=== PATIENT | female | born 1945 | race African-American/Black ===

== ENCOUNTER → 2016-08-05 | Outpatient (CLI) | payer OTHER ==
[~2016-08-05] MED LIST: ASPIRIN81 M1 PO; CLONIDINE; LEVOXY; NORVASC PO; THYROID MEDICINE
--- NOTE | ~2016-08-05 | MY7 ---
[facility] A Service of [facility] RADIOLOGY TEXT RESULTS PATIENT: COLLEEN FOSTER LOCATION: [facility] : 47 UNIT #: [id number] AGE: [address]: Ze Rhoades MD SEX: F ORDER DR: [id number] [facility]. [place], [place] [address] [id number] O MR#: [id number] Acc #: [id number] NAME: COLLEEN FOSTER. : 1945 SEX: F STUDY DATE/TIME: 08/05/2016 11:14 UNIT: [facility] ROOM: STUDY DESCRIPTION: MY Mammogram Dx Dig Lt Attending Physician: Ze Rhoades M.D. Referring Physician: Ze Rhoades M.D. Ordering Physician: Ze Rhoades M.D. Primary Care Physician: Milagros Ibarra M.D. MEDICAL IMAGING REPORT This report is preliminary unless electronic signature is present EXAM Left breast digital diagnostic mammogram with CAD DATE 08/05/2016 HISTORY 71-year-old female with history of left breast cancer and lumpectomy in 2014. No current complaints. COMPARISON Bilateral screening mammogram 12/08/2015. FINDINGS CC, MLO and true ML views were obtained of the left breast utilizing digital technique and reviewed with an FDA-approved CAD device. Scattered fibroglandular densities are present. Architectural distortion within the upper outer quadrant of the left breast central third is unchanged, in keeping with history of lumpectomy. No new or suspicious nodule is identified. Skin thickening in the left breast is consistent with previous stated history of radiation therapy, as well. There are no suspicious clustered microcalcifications. IMPRESSION 1. Left breast BIRADS category 2. Post lumpectomy and radiation therapy changes. There are no new features to suggest malignancy. Patient is advised to return for routine screening mammograms cycle, due in November of 2016. Findings and recommendations were discussed with the patient today in the radiology department. Patients over the age of 40 are entered into a reminder system with target due date for the next mammogram. A result letter will also be sent to the [facility] A Service of [facility] RADIOLOGY TEXT RESULTS PATIENT: COLLEEN FOSTER LOCATION: [facility] : 47 UNIT #: [id number] AGE: [address]: Ze Rhoades MD SEX: F ORDER DR: patient. BIRADS: 2, benign findings Dictated by... Samia Escalera M.D. THIS IS AN ELECTRONICALLY VERIFIED REPORT Samia Escalera M.D. at 08/06/2016 6:13 AM ALANNA/desire TD: 08/05/2016 13:44 JOB #: [id number] MEDICAL IMAGING REPORT Page 1 of 1 COPY
== END | disposition home or self-care (01) ==
LOC: CMAM 10:30
DX: C50.912 Malignant neoplasm of unspecified site of left female breast (principal); Z98.890 Other specified postprocedural states
CPT/HCPCS: G0206

== ENCOUNTER → 2016-09-17 | Outpatient (CLI) | payer OTHER ==
--- NOTE | ~2016-09-17 | CR59 ---
[facility] A Service of [facility] RADIOLOGY TEXT RESULTS PATIENT: COLLEEN FOSTER LOCATION: [facility] : 47 UNIT #: [id number] AGE: [address]: Milagros Ibarra MD SEX: F ORDER DR: [id number] [facility] [address] [place], [place] [address] [id number] O MR#: [id number] Acc #: [id number] NAME: COLLEEN FOSTER. : 1945 SEX: F STUDY DATE/TIME: 09/17/2016 15:44 UNIT: [facility] ROOM: STUDY DESCRIPTION: CR Cervical Spine 5 View W Fle Attending Physician: Milagros Ibarra M.D. Referring Physician: Milagros Ibarra M.D. Ordering Physician: Milagros Ibarra M.D. Primary Care Physician: Milagros Ibarra M.D. MEDICAL IMAGING REPORT This report is preliminary unless electronic signature is present EXAM Cervical spine 5 view series including flexion and extension HISTORY Posterior left sided neck pain for 2 weeks, left shoulder pain. There is no comparison. FINDINGS AP oblique, odontoid and lateral neutral, flexion and extension views were obtained. There are prominent anterior osteophyte formations from C2 through C7. There is no significant posterior spurring. There is no subluxation and flexion or extension. Disc spaces are normal in height. There is no bony neural foraminal narrowing visible. IMPRESSION 1. There are prominent extensive anterior osteophyte formations but there is no evidence of spinal stenosis or definite neural foraminal narrowing. There is no subluxation in flexion or extension. Dictated by... Timbo Gruber M.D. THIS IS AN ELECTRONICALLY VERIFIED REPORT Timbo Gruber M.D. at 09/19/2016 9:34 PM SONA/rnr TD: 09/18/2016 22:21 JOB #: [id number] MEDICAL IMAGING REPORT [facility] A Service of [facility] RADIOLOGY TEXT RESULTS PATIENT: COLLEEN FOSTER LOCATION: [facility] #: [id number] : 47 UNIT #: [id number] AGE: [address]: Milagros Ibarra MD SEX: F ORDER DR: Page 1 of 1 COPY
--- NOTE | ~2016-09-17 | CR229 ---
[facility] A Service of [facility] & [facility] RADIOLOGY TEXT RESULTS PATIENT: COLLEEN FOSTER LOCATION: [facility] : 47 UNIT #: [id number] AGE: [address]: Milagros Ibarra MD SEX: F ORDER DR: [id number] [facility] [address] [place], [place] [address] [id number] O MR#: [id number] Acc #: [id number] NAME: COLLEEN FOSTER : 1945 SEX: F STUDY DATE/TIME: 09/17/2016 15:45 UNIT: [facility] ROOM: STUDY DESCRIPTION: CR Shoulder Min 2 View Lt Attending Physician: Milagros Ibarra M.D. Referring Physician: Milagros Ibarra M.D. Ordering Physician: Milagros Ibarra M.D. Primary Care Physician: Milagros Ibarra M.D. MEDICAL IMAGING REPORT This report is preliminary unless electronic signature is present EXAM Left shoulder 3 views 09/17/2016 HISTORY Neck pain with left upper extremity radiculopathy and decreased range of motion left shoulder for 2 weeks. No known injury. FINDINGS Three views of the left shoulder demonstrate no fracture. There is degenerative narrowing of the left glenohumeral joint with osteophytic spurring extending off the glenoid and the humeral head. Osteophytic spurring extends off the left acromioclavicular joint. Bones appear somewhat osteopenic. There is no soft tissue abnormality. IMPRESSION Degenerative change involving the left glenohumeral and acromioclavicular joints. No acute abnormality Dictated by... Foster Cowan M.D. THIS IS AN ELECTRONICALLY VERIFIED REPORT Foster Cowan M.D. at 09/20/2016 7:22 AM GARCIA/desire TD: 09/18/2016 00:36 JOB #: [id number] MEDICAL IMAGING REPORT Page 1 of 1 COPY
== END | disposition home or self-care (01) ==
LOC: CRAD 15:32
DX: M54.12 Radiculopathy, cervical region (principal); M19.012 Primary osteoarthritis, left shoulder
CPT/HCPCS: 72052; 73030